=== PATIENT | female | born 1990 | race Caucasian/White ===

== ENCOUNTER → 2017-01-18 | Outpatient (CLI) | payer OTHER ==
[~2017-01-18] MED LIST: IBUPROFEN600 MG PO; PRENATAL1 TA1 PO; TRAMADOL HCL50 MG PO; ZITHROMAX Z PA250 MG PO
[2017-01-18 16:51] LABS: FREE T4 1.06 ng/dl (0.76-1.46)
[2017-01-18 16:56] LABS: THYROID STIM HORMONE (HS) 1.83 uIU/ml (0.358-4.75)
[2017-01-19 07:05] LABS: PROLACTIN 004465 8.3 ng/mL (4.8-23.3)
[2017-01-19 14:06] LABS: ANTICARDIOLIPIN AB, IGG, QN <9 GPL U/mL (0-14); ANTICARDIOLIPIN AB, IGM, QN 9 MPL U/mL (0-12)
[2017-01-20 00:03] LABS: LUPUS DRVVT 38.6 sec (0.0-47.0); LUPUS REFLEX INTERPRETATION Comment: (.); PTT-LA 36.1 sec (0.0-51.9)
== END | disposition home or self-care (01) ==
LOC: LAB 16:00
PROVIDERS: Obstetrics & Gynecology
DX: Z00.129 Encounter for routine child health examination without abnormal findings (principal); Z00.121 Encounter for routine child health examination with abnormal findings

== ENCOUNTER → 2019-08-07 | Outpatient (CLI) | payer OTHER | END | disposition home or self-care (01) | LOC: US 08:30 | DX: Z34.81 Encounter for supervision of other normal pregnancy, first trimester (principal); Z3A.01 Less than 8 weeks gestation of pregnancy ==

== ENCOUNTER 2020-07-30 14:10 | Emergency (ER) | payer OTHER ==
[~2020-07-30] VITALS: Ht 157.4 cm; Wt 53.1 kg
[2020-07-30 14:30] VITALS: BP 147/78
== END 2020-07-30 16:45 | disposition home or self-care (01) ==
LOC: ED 14:10
DX: S69.91XA Unspecified injury of right wrist, hand and finger(s), initial encounter (principal); Z79.899 Other long term (current) drug therapy; W22.8XXA Striking against or struck by other objects, initial encounter; Y93.89 Activity, other specified; Y92.89 Other specified places as the place of occurrence of the external cause; Y99.9 Unspecified external cause status

== ENCOUNTER → 2024-04-06 | Outpatient (CLI) | payer OTHER | END | disposition home or self-care (01) | LOC: US 11:00 | PROVIDERS: ATTEND Family Medicine | DX: O09.891 Supervision of other high risk pregnancies, first trimester (principal); O46.8X1 Other antepartum hemorrhage, first trimester; Z3A.00 Weeks of gestation of pregnancy not specified ==